=== PATIENT | male | born 1990 | race Caucasian/White ===

== ENCOUNTER → 2018-01-31 | Outpatient (CLI) | payer OTHER ==
--- NOTE | 2018-01-31 11:26 | XR ---
EXAMINATION TYPE: XR lumbar spine 2 or 3V DATE OF EXAM: 01/31/2018 COMPARISON: NONE HISTORY: 27-year-old male low back muscle strain, low back pain TECHNIQUE: 3 views FINDINGS: There is leftward truncal shift. Vertebral body heights are maintained and alignment is preserved. Th ere may be minimal early degenerative facet changes in the lower lumbar spine. IMPRESSION: 1. Leftward truncal shift could be positional or represent muscle spasm. 2. Minimal early facet degenerative changes lower lumbar spine. No vertebral compression collapse or malalignment.
== END | disposition home or self-care (01) ==
LOC: RADXRMAIN 10:58
PROVIDERS: ATTEND Emergency Medicine
DX: M47.816 Spondylosis without myelopathy or radiculopathy, lumbar region (principal)
CPT/HCPCS: 72100

== ENCOUNTER → 2018-03-14 | Outpatient (CLI) | payer OTHER ==
--- NOTE | 2018-03-14 21:14 | MR ---
EXAMINATION TYPE: MR lumbar spine wo con DATE OF EXAM: 03/14/2018 COMPARISON: Lumbar spine x-ray January 31, 2018 HISTORY: Low back pain into left leg after lifting injury. TECHNIQUE: Multiplanar, multisequence imaging of the lumbar spine is performed without IV contrast. FINDINGS: Sagittal images of the lumbar spine show vertebral body heights and alignment to appear sat isfactory. The intervertebral discs demonstrate normal heights and hydration. No large posterior dis c herniations are present on sagittal images. The conus medullaris is normal in position and signal e nding at T12-L1 disc space level. The bone marrow signal intensity is within normal limits. No signi ficant spurring is present. Axial images show some mild facet degenerative changes L4-L5 and L5-S1 levels. Spinal canal is preser juan carlos. Bilateral neural foramina remain patent. IMPRESSION: Mild facet arthropathy lower lumbar levels is confirmed. No significant finding is seen t o account for patient's left-sided radiculopathy type symptoms however.
== END | disposition home or self-care (01) ==
LOC: RADMRIMAIN 20:28
PROVIDERS: ATTEND Emergency Medicine
DX: M46.96 Unspecified inflammatory spondylopathy, lumbar region (principal)
CPT/HCPCS: 72148

== ENCOUNTER → 2018-10-22 | Outpatient (CLI) | payer BC ==
--- NOTE | 2018-10-22 11:06 | CT ---
EXAMINATION TYPE: CT abdomen pelvis w con DATE OF EXAM: 10/22/2018 COMPARISON: NONE HISTORY: 28-year-old male LLQ pain, Lt testicular pain TECHNIQUE: Contiguous axial scanning of the abdomen and pelvis following administration of 100 ml Iso therese 300 IV contrast. Delayed images through the kidneys and coronal/sagittal reconstructions perform ed. CT DLP: 441.1 mGycm Automated exposure control for dose reduction was used. FINDINGS: Heart normal size without pericardial effusion. Tiny hiatal hernia. Lung bases clear without pleural effusion. No focal liver lesion or biliary ductal dilatation. Portal venous system is patent. Gallbladder, adrenal glands, kidneys, spleen, and pancreas appear within normal limits. No dilated small bowel, free fluid, or free air. Segments of the normal opacified appendix are demonstrated, coronal image 21. No significant stool bu rden. Oral contrast extends to the rectum. Mild fold thickening of the sigmoid colon and rectum may b e secondary to nondistention. No pericolonic inflammatory fat stranding. Scattered numerous nonenlarged and borderline enlarged mesenteric lymph nodes are present measuring u p to 6 mm, for example, coronal image 24. Likely reactive/post inflammatory. Bladder is distended. Left-sided pelvic phleboliths. Prostate gland measures 3.7 cm wide. No abnormal fluid collection in the pelvis or pelvic lymphadenopathy. Bones: No osseous destructive process. IMPRESSION: 1. MILD CEREBRAL FRONTAL WALL THICKENING OF THE SIGMOID COLON AND RECTUM COULD BE SECONDARY TO NONDIS TENTION OR COULD REFLECT NONSPECIFIC MILD COLITIS. CLINICALLY CORRELATE. 2. A FEW BORDERLINE SIZED MESENTERIC LYMPH NODES MEASURE UP TO 6 MM AND ARE LIKELY REACTIVE/POST INFL AMMATORY. 3. OTHERWISE, NO ACUTE INFLAMMATORY PROCESS IDENTIFIED IN THE ABDOMEN OR PELVIS TO EXPLAIN THE PATIEN T'S SYMPTOMS.
== END ==
LOC: RADCTMAIN 07:49
PROVIDERS: ATTEND Internal Medicine
DX: K63.89 Other specified diseases of intestine (principal)
CPT/HCPCS: 74177; Q9967

== ENCOUNTER 2020-08-13 15:51 | Emergency (ER) | payer BC, OTHER ==
[2020-08-13] MEDS ORDERED: LIDOCAINE 5% PATCH TOPICAL STA (16:15)
[2020-08-13] MEDS ORDERED: oxyCODONE-APAP 7.5-325MG 1 EACH TAB PO STA (16:15)
[2020-08-13] MEDS ORDERED: dexAMETHasone 4 MG TAB PO STA (16:15)
--- NOTE | 2020-08-13 16:18 | ED ---
General Adult HPI - General Chief complaint: Back Pain/Injury Stated complaint: IHS-back injury Time Seen by Provider: 08/13/20 16:02 Source: patient Mode of arrival: ambulatory Limitations: no limitations - History of Present Illness Initial comments: Dictation was produced using [employer] dictation software. please excuse any grammatical, word or spelling errors. This patient was cared for during a federal and state declared state of emergency secondary to Covid 19 Chief Complaint: 30-year-old male presents with back pain History of Present Illness: [id number] male he works with [employer]. Patient states he was lifting a wheelchair into a wheelchair van. States that caring a wheelchair approximately 12 hours prior to arrival he felt pain in his back. States the pain is in his left lower back raised on his leg. Patient has history of chronic back pain. He has had workup on multiple occasions regarding his back pain. He had a negative MRI in March 2018. Patient denies any numbness daily paresthesias to the leg. Denies any saddle anesthesia. No fever. The ROS documented in this emergency department record has been reviewed and confirmed by me. Those systems with pertinent positive or negative responses have been documented in the HPI. All other systems are other negative and/or noncontributory. PHYSICAL EXAM: General Impression: Alert and oriented x3, not in acute distress HEENT: Normocephalic atraumatic, extra-ocular movements intact, pupils equal and reactive to light bilaterally, mucous membranes moist. Cardiovascular: Heart regular rate and rhythm Chest: Able to complete full sentences, no retractions, no tachypnea Abdomen: abdomen soft, non-tender, non-distended, no organomegaly Musculoskeletal: Pulses present and equal in all extremities, no peripheral edema Motor: no focal deficits noted Neurological: CN II-XII grossly intact, no focal motor or sensory deficits noted Skin: Intact with no visualized rashes Psych: Normal affect and mood ED course: 30 Year old male with clinical presentation consistent with sciatica. He has atraumatic back pain. He has no red flag symptoms. Vital signs upon arrival are within acceptable limits. No imaging indicated at this time. Patient given by mouth analgesic, lidocaine patch and steroid. Patient reevaluated after short observation in the emergency department. He is feeling better. Patient told to go home and rest. Given outpatient referral to a project specialist. - Related Data Allergies Allergy/AdvReac Type Severity Reaction Status Date / Time No Known Allergies Allergy Verified 08/13/20 15:56 Review of Systems ROS Statement: Those systems with pertinent positive or pertinent negative responses have been documented in the HPI. ROS Other: All systems not noted in ROS Statement are negative. Past Medical History Past Medical History: No Reported History History of Any Multi-Drug Resistant Organisms: None Reported Additional Past Surgical History / Comment(s): eye surgery Past Psychological History: No Psychological Hx Reported Smoking Status: Never smoker Past Alcohol Use History: Occasional Past Drug Use History: None Reported General Exam Limitations: no limitations Course Vital Signs 08/13/20 15:52 Temperature 98.6 F Pulse Rate 87 Respiratory 18 Rate Blood Pressure 135/91 O2 Sat by Pulse 98 Oximetry Disposition Clinical Impression: Back pain Disposition: HOME SELF-CARE Condition: Fair Instructions (If sedation given, give patient instructions): Acute Low Back Pain (ED) Is patient prescribed a controlled substance at d/c from ED?: No Referrals: Jerrica Deras DO [Doctor of Osteopathic Medicine] - 1-2 days Time of Disposition: 17:06
[2020-08-13 17:18] VITALS: BP 148/74; PULSE 78; RESP 16; TEMP 98.2
== END 2020-08-13 17:16 | disposition home or self-care (01) ==
LOC: EC 15:51
DX: M54.5 Low back pain (principal); X50.0XXA Overexertion from strenuous movement or load, initial encounter; Y92.69 Other specified industrial and construction area as the place of occurrence of the external cause; Y99.0 Civilian activity done for income or pay
CPT/HCPCS: 99283; J8540

== ENCOUNTER 2020-09-08 17:25 | Emergency (ER) | payer BC, OTHER ==
[2020-09-08 17:33] VITALS: BP 139/96; PULSE 81; RESP 18; TEMP 98
--- NOTE | 2020-09-08 18:04 | ED ---
General Adult HPI - General Chief complaint: Extremity Injury, Lower Stated complaint: IHS-HIP STRAIN Time Seen by Provider: 09/08/20 17:48 Source: patient, RN notes reviewed Mode of arrival: ambulatory Limitations: no limitations - History of Present Illness Initial comments: Patient is a pleasant 30-year-old male presenting to the emergency Department with complaints of right leg pain. 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 Patient complains of discomfort of the right upper quadriceps region. Discomfort does increase with movement. No weakness. Patient did not have direct trauma to this region. No history of similar problems previously. Patient is ambulatory. - Related Data Allergies Allergy/AdvReac Type Severity Reaction Status Date / Time No Known Allergies Allergy Verified 09/08/20 17:31 Review of Systems ROS Statement: Those systems with pertinent positive or pertinent negative responses have been documented in the HPI. ROS Other: All systems not noted in ROS Statement are negative. Constitutional: Denies: fever Eyes: Denies: eye pain ENT: Denies: ear pain Respiratory: Denies: cough Cardiovascular: Denies: chest pain Endocrine: Denies: fatigue Gastrointestinal: Denies: abdominal pain Genitourinary: Denies: dysuria Musculoskeletal: Reports: as per HPI. Denies: back pain Skin: Denies: rash Neurological: Denies: weakness Past Medical History Past Medical History: No Reported History History of Any Multi-Drug Resistant Organisms: None Reported Additional Past Surgical History / Comment(s): eye surgery Past Psychological History: No Psychological Hx Reported Smoking Status: Never smoker Past Alcohol Use History: Daily Past Drug Use History: None Reported General Exam Limitations: no limitations General appearance: alert, in no apparent distress Head exam: Present: normocephalic Eye exam: Present: normal appearance Neck exam: Present: normal inspection Respiratory exam: Present: normal lung sounds bilaterally Cardiovascular Exam: Present: regular rate, normal rhythm Expanded Peripheral pulses: 2+: Posterior Tibialis (R), Dorsalis Pedis (R) GI/Abdominal exam: Present: soft. Absent: tenderness Extremities exam: Present: normal inspection, full ROM, tenderness (Minimal tenderness anterior right hip) Neurological exam: Absent: motor sensory deficit Expanded Sensory exam: Lower Extremity Light Touch: Normal Motor strength exam: RLE: 5 Psychiatric exam: Present: normal affect, normal mood Skin exam: Present: normal color Course Vital Signs 09/08/20 17:31 Temperature 98 F Pulse Rate 81 Respiratory 18 Rate Blood Pressure 139/96 O2 Sat by Pulse 97 Oximetry Medical Decision Making - Medical Decision Making Patient reevaluated and updated. Patient feels he can return to work. Patient does not want prescription medication. - Radiology Data Radiology results: image reviewed (X-ray pelvis and right femur reveal no acute abnormality) Disposition Clinical Impression: Hip strain Disposition: HOME SELF-CARE Condition: Stable Instructions (If sedation given, give patient instructions): Hip Sprain (ED) Additional Instructions: Please follow-up with [facility] in the next day or 2 for recheck. Ice to affected area. [id number] Motrin as needed. Return for increased pain, weakness, worsening or changing symptoms or other concerns. Is patient prescribed a controlled substance at d/c from ED?: No Referrals: Brayan Knowles MD [Primary Care Provider] - 1-2 days Time of Disposition: 19:07
--- NOTE | 2020-09-08 18:24 | XR ---
EXAMINATION TYPE: XR pelvis AP view DATE OF EXAM: 09/08/2020 COMPARISON: None HISTORY: Fall TECHNIQUE: AP pelvis FINDINGS: Femoral heads articulate with the acetabulum. No acute fractures are evident. Sacroiliac abdelrahman ints and symphysis pubis are normal. Normal colonic bowel gas is present. Calcifications are within t he left hemipelvis. IMPRESSION: 1. No acute abnormality pelvis
--- NOTE | 2020-09-08 18:25 | XR ---
EXAMINATION TYPE: XR femur RT DATE OF EXAM: 09/08/2020 COMPARISON: None HISTORY: Fall, pain TECHNIQUE: 2 view right femur FINDINGS: Femoral head articulates with the acetabulum. No acute fracture or dislocation is evident. Knee joint space appears preserved. Soft tissues are unremarkable. IMPRESSION: 1. Normal 2 view right femur
== END 2020-09-08 19:10 | disposition home or self-care (01) ==
LOC: EC 17:25
DX: S76.011A Strain of muscle, fascia and tendon of right hip, initial encounter (principal); X58.XXXA Exposure to other specified factors, initial encounter; Y92.69 Other specified industrial and construction area as the place of occurrence of the external cause; Y99.0 Civilian activity done for income or pay
CPT/HCPCS: 72170; 99283

== ENCOUNTER 2021-09-30 11:04 | Emergency (ER) | payer BC ==
[2021-09-30 11:34] VITALS: BP 138/88; PULSE 97; RESP 18; TEMP 98.5
[2021-09-30] MEDS ORDERED: SODIUM CHLORIDE 0.9% 1,000 ML IV STA (12:10)
[2021-09-30] MEDS ORDERED: diphenhydrAMINE 50 MG/ML 1 ML VIAL IVP STA (12:10)
[2021-09-30] MEDS ORDERED: ONDANSETRON 4 MG/2 ML VIAL IVP STA (12:10)
[2021-09-30] MEDS ORDERED: LIDOCAINE VISCOUS 2% 15 ML CUP MUCOUS MEM STA (12:34)
[2021-09-30] MEDS ORDERED: FAMOTIDINE 20 MG/2 ML VIAL IV STA (12:34)
--- NOTE | 2021-09-30 12:41 | ED ---
General Adult HPI - General Chief complaint: Nausea/Vomiting/Diarrhea Stated complaint: Vomiting blood/headache/sore throat Time Seen by Provider: 09/30/21 12:05 Source: patient, RN notes reviewed, old records reviewed Mode of arrival: ambulatory Limitations: no limitations - History of Present Illness Initial comments: I evaluated the patient when he was placed in a room. Patient is a 31-year-old male with past medical history that is unremarkable. Patient presents to emergency department over concern for approximately 12 hour history of nausea a nd vomiting. Patient states he saw dark brown or red color to his emesis as well. He has vomited 3-4 times. Last was this morning. States he did eat including dinner last night he drank anything that was red. He describes the episodes as somewhat violent episodes of emesis. His current complaint is only mild nausea as well as some epigastric abdominal discomfort. He states it does not radiate. He describes it as a sharp, achy sensation. Denies any chest pain, shortness of breath. Patient was vaccinated for COVID-19. Denies any diarrhea. Denies any headache, weakness, numbness. Denies any cough, fevers, chills. He has no other acute complaints at this time. He does occasionally use alcohol. Denies any drug use. His no other acute complaints at this time. - Related Data Home Medications Medication Instructions Recorded Confirmed Dextroamphetamine/Amphetamine 15 mg PO BID 09/30/21 09/30/21 [Adderall] Previous Rx's Medication Instructions Recorded Famotidine [Pepcid] 20 mg PO DAILY 14 Days #14 tablet 09/30/21 Mag Hydrox/Al Hydrox/Simeth 30 ml PO BID #600 ml 09/30/21 [Maalox] Ondansetron Odt [Zofran Odt] 4 mg PO Q8HR PRN 2 Days #6 tab 09/30/21 Allergies Allergy/AdvReac Type Severity Reaction Status Date / Time No Known Allergies Allergy Verified 09/30/21 12:40 Review of Systems ROS Statement: Those systems with pertinent positive or pertinent negative responses have been documented in the HPI. Review of Systems: CONST: Denies fever EYES: Denies blurry vision ENT: Denies nasal congestion C/V: Denies Chest pain RESP: Denies shortness of breath GI: Endorses abdominal pain. : Denies dysuria SKIN: Denies rash. MSK: Denies joint pain. NEURO: Denies headache ROS Other: All systems not noted in ROS Statement are negative. Past Medical History Past Medical History: No Reported History History of Any Multi-Drug Resistant Organisms: None Reported Additional Past Surgical History / Comment(s): eye surgery Past Psychological History: No Psychological Hx Reported Smoking Status: Never smoker, Vaper Past Alcohol Use History: Daily, Occasional Past Drug Use History: None Reported General Exam - General Exam Comments Initial Comments: General: Appears in no acute distress. HEAD: Normal with no signs of head trauma. EYES: PERRLA, EOMI, conjunctiva normal, no discharge. ENT: Hearing grossly intact, normal oropharynx. RESPIRATORY: Clear breath sounds bilaterally. No wheezes, rales, or rhonchi. C/V: Regular rate and rhythm. S1 and S2 auscultated, no edema, peripheral pulses 2+ and intact throughout ABD: Abdomen is soft, nondistended. Patient is mildly tender to palpation in the epigastric region. There is no guarding. No peritoneal signs. No rebound tenderness. No CVA tenderness to percussion. EXT: Normal range of motion, no obvious deformity SKIN: No rashes or lesions observed on exposed skin. NEURO: Alert and oriented 4. Limitations: no limitations Course Vital Signs 09/30/21 11:30 Temperature 98.5 F Pulse Rate 97 Respiratory 18 Rate Blood Pressure 138/88 O2 Sat by Pulse 99 Oximetry Medical Decision Making - Medical Decision Making Based on the patient's presentation and physical exam, patient appears to be e xamined possible episode of hematemesis at home. As his nausea as well as epigastric abdominal pain. He otherwise appears in no acute distress. Vital signs are normal limits stable. We will obtain abdominal laboratory studies as well as symptomatically treat the patient with IV fluid bolus, and acids, Zofran, viscous lidocaine. He was in agreement with this plan. He'll be subsequently reevaluated upon laboratory studies. Chest x-ray will also be obtained to evaluate for any signs of mediastinal free air, however embolus patient for esophageal rupture as he has been tolerating PO intake at this time. Has no history of GERD or peptic ulcer disease. Patient's laboratory studies were remarkable for a mild leukocytosis of 10.9 which is likely reactive. Laboratory studies are otherwise unremarkable. Hemoglobin is within normal limits. No signs of thrombocytopenia.. COVID-19 swab was negative. Chest x-ray shows no acute cardio pulmonary process. On reevaluation, patient is feeling improved. He is telling by mouth intake. I do believe it is safer to be discharged home with follow-up with his PCP. He was in agreement this plan. We did discuss a bland diet until he begins to feel improved. I will provide the patient with a prescription for Maalox, famotidine, ODT Zofran. I instructed the patient to follow up with their PCP in the next 3 days. I explained that the patient should return to the emergency department if they experience any worsening symptoms. Strict return precautions were discussed with the patient. The patient expressed understanding of these instructions. I answered all questions that the patient had. The patient was discharged home in fair condition with their prescriptions and follow up information. - Lab Data Result diagrams: 09/30/21 12:29 09/30/21 12:29 Lab Results 09/30/21 09/30/21 09/30/21 Range/Units 12:29 12:29 12:29 WBC 10.9 H (3.8-10.6) k/uL RBC 5.04 (4.30-5.90) m/uL Hgb 15.6 (13.0-17.5) gm/dL Hct 44.1 (39.0-53.0) % MCV 87.6 (80.0-100.0) fL MCH 31.0 (25.0-35.0) pg MCHC 35.4 (31.0-37.0) g/dL RDW 13.2 (11.5-15.5) % Plt Count 353 (150-450) k/uL MPV 7.9 Neutrophils % 76 % Lymphocytes % 13 % Monocytes % 7 % Eosinophils % 3 % Basophils % 1 % Neutrophils # 8.3 H (1.3-7.7) k/uL Lymphocytes # 1.4 (1.0-4.8) k/uL Monocytes # 0.7 (0-1.0) k/uL Eosinophils # 0.3 (0-0.7) k/uL Basophils # 0.1 (0-0.2) k/uL Sodium 138 (137-145) mmol/L Potassium 4.4 (3.5-5.1) mmol/L Chloride 105 (98-107) mmol/L Carbon Dioxide 25 (22-30) mmol/L Anion Gap 8 mmol/L BUN 15 (9-20) mg/dL Creatinine 1.01 (0.66-1.25) mg/dL Est GFR (CKD-EPI)AfAm >90 (>60 ml/min/1.73 sqM) Est GFR (CKD-EPI)NonAf >90 (>60 ml/min/1.73 sqM) Glucose 98 (74-99) mg/dL Calcium 10.1 (8.4-10.2) mg/dL Magnesium 1.8 (1.6-2.3) mg/dL Total Bilirubin 0.8 (0.2-1.3) mg/dL AST 28 (17-59) U/L ALT 23 (4-49) U/L Alkaline Phosphatase 55 (38-126) U/L Total Protein 7.3 (6.3-8.2) g/dL Albumin 4.4 (3.5-5.0) g/dL Amylase 52 (30-110) U/L Lipase 113 (23-300) U/L Coronavirus (PCR) Not Detected (Not Detectd) Disposition Clinical Impression: Nausea & vomiting, Abdominal pain of unknown etiology, Gastritis Disposition: HOME SELF-CARE Condition: Fair Instructions (If sedation given, give patient instructions): Acute Nausea and Vomiting (ED) Prescriptions: Mag Hydrox/Al Hydrox/Simeth [Maalox] 30 ml PO BID #600 ml Famotidine [Pepcid] 20 mg PO DAILY 14 Days #14 tablet Ondansetron Odt [Zofran Odt] 4 mg PO Q8HR PRN 2 Days #6 tab PRN Reason: Nausea Is patient prescribed a controlled substance at d/c from ED?: No Referrals: Indiana Hollis MD [Primary Care Provider] - 1-2 days
[2021-09-30 12:51] LABS: Basophils # (A) 0.1 k/uL (0-0.2); Basophils % (A) 1 %; Eosinophils # (A) 0.3 k/uL (0-0.7); Eosinophils % (A) 3 %; HCT 44.1 % (39.0-53.0); HGB 15.6 gm/dL (13.0-17.5); Lymphocytes # (A) 1.4 k/uL (1.0-4.8); Lymphocytes % (A) 13 %; MCHC 35.4 g/dL (31.0-37.0); MCV 87.6 fL (80.0-100.0); Mean Platelet Volume 7.9; Monocytes # (A) 0.7 k/uL (0-1.0); Monocytes % (A) 7 %; Neutrophils # (A) 8.3 k/uL (1.3-7.7); Neutrophils % (A) 76 %; Platelet Count 353 k/uL (150-450); RBC 5.04 m/uL (4.30-5.90); RDW 13.2 % (11.5-15.5); WBC 10.9 k/uL (3.8-10.6)
[2021-09-30 13:02] LABS: ALT 23 U/L (4-49); AST 28 U/L (17-59); African American GFR (CKD) >90 (>60 ml/min/1.73 sqM); Albumin 4.4 g/dL (3.5-5.0); Alkaline Phosphatase 55 U/L (38-126); Amylase 52 U/L (30-110); Anion Gap 8 mmol/L; Blood Urea Nitrogen 15 mg/dL (9-20); Calcium 10.1 mg/dL (8.4-10.2); Carbon Dioxide 25 mmol/L (22-30); Chloride 105 mmol/L (98-107); Glucose 98 mg/dL (74-99); Lipase 113 U/L (23-300); Magnesium 1.8 mg/dL (1.6-2.3); Non-African American GFR(CKD) >90 (>60 ml/min/1.73 sqM); Potassium 4.4 mmol/L (3.5-5.1); Sodium 138 mmol/L (137-145); Total Bilirubin 0.8 mg/dL (0.2-1.3); Total Protein 7.3 g/dL (6.3-8.2)
--- NOTE | 2021-09-30 13:13 | XR ---
EXAMINATION TYPE: XR chest 2V DATE OF EXAM: 09/30/2021 COMPARISON: 07/24/2019 HISTORY: 31-year-old male with pain TECHNIQUE: PA and lateral views FINDINGS: The cardiomediastinal silhouette, aorta, and pulmonary vasculature are within normal limits. Lungs an d pleural spaces are clear. IMPRESSION: No acute cardiopulmonary process.
== END 2021-09-30 15:04 | disposition home or self-care (01) ==
LOC: EC 11:04
DX: K29.70 Gastritis, unspecified, without bleeding (principal); F17.290 Nicotine dependence, other tobacco product, uncomplicated
CPT/HCPCS: 36415; 80053; 82150; 83690; 83735; 85025; 87635; 71046; 99284; 96374; 96375 ×2; 96361; J1200; J2405

== ENCOUNTER 2022-09-28 03:27 | Emergency (ER) | payer BC, OTHER ==
--- NOTE | 2022-09-28 03:29 | ED ---
Chest Pain HPI - General Stated Complaint: Chest pain Time Seen by Provider: 09/28/22 03:28 Source: RN notes reviewed, old records reviewed Mode of arrival: EMS Limitations: no limitations - History of Present Illness Initial Comments: This is a 32-year-old male DF for evaluation. 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 Chest pain continued here in route to the ER and because of significant shortness of breath prior to arrival. No prior history of similar issue. No travel or sick contacts, no fevers or other complaints MD Complaint: chest pain -: minutes(s) Onset: during exertion Pain Location: left chest Pain Radiation: none Severity: moderate Severity scale (1-10): 7 Quality: tightness, sharp Consistency: intermittent Improves With: nothing Worsens With: exertion Anginal Symptoms: dyspnea Other Symptoms: palpitations Treatments Prior to Arrival: none - Related Data Home Medications Medication Instructions Recorded Confirmed Dextroamphetamine/Amphetamine 15 mg PO BID 09/30/21 09/30/21 [Adderall] Previous Rx's Medication Instructions Recorded Famotidine [Pepcid] 20 mg PO DAILY 14 Days #14 tablet 09/30/21 Mag Hydrox/Al Hydrox/Simeth 30 ml PO BID #600 ml 09/30/21 [Maalox] Ondansetron Odt [Zofran Odt] 4 mg PO Q8HR PRN 2 Days #6 tab 09/30/21 Allergies Allergy/AdvReac Type Severity Reaction Status Date / Time No Known Allergies Allergy Verified 09/30/21 12:40 Review of Systems ROS Statement: Those systems with pertinent positive or pertinent negative responses have been documented in the HPI. ROS Other: All systems not noted in ROS Statement are negative. EKG Findings - EKG Comments: EKG Findings:: EKG interpreted by me as sinus 88 [address] 187 QRS 82 QTC 368 Past Medical History Past Medical History: No Reported History History of Any Multi-Drug Resistant Organisms: None Reported Additional Past Surgical History / Comment(s): eye surgery Past Psychological History: No Psychological Hx Reported Smoking Status: Never smoker, Vaper Past Alcohol Use History: Daily, Occasional Past Drug Use History: None Reported General Exam General appearance: alert, in no apparent distress, anxious Head exam: Present: atraumatic, normocephalic, normal inspection Eye exam: Present: normal appearance, PERRL, EOMI. Absent: scleral icterus, conjunctival injection, periorbital swelling ENT exam: Present: normal exam, mucous membranes moist Neck exam: Present: normal inspection. Absent: tenderness, meningismus, lymphadenopathy Respiratory exam: Present: normal lung sounds bilaterally. Absent: respiratory distress, wheezes, rales, rhonchi, stridor Cardiovascular Exam: Present: regular rate, normal rhythm, normal heart sounds. Absent: systolic murmur, diastolic murmur, rubs, gallop, clicks GI/Abdominal exam: Present: soft, normal bowel sounds. Absent: distended, tenderness, guarding, rebound, rigid Extremities exam: Present: normal inspection, full ROM, normal capillary refill. Absent: tenderness, pedal edema, joint swelling, calf tenderness Back exam: Present: normal inspection Neurological exam: Present: alert, oriented X3, CN II-XII intact Psychiatric exam: Present: normal affect, normal mood Skin exam: Present: warm, dry, intact, normal color. Absent: rash Course Vital Signs 09/28/22 09/28/22 09/28/22 03:28 03:36 03:40 Temperature 98.3 F Pulse Rate 91 Pulse Rate [ 84 Apical] Respiratory 16 Rate Blood Pressure 124/75 O2 Sat by Pulse 99 Oximetry 09/28/22 08:54 Temperature 98.2 F Pulse Rate 78 Pulse Rate [ Apical] Respiratory 16 Rate Blood Pressure 124/89 O2 Sat by Pulse 98 Oximetry - Reevaluation(s) Reevaluation #1: 09/28/22 Medical record is reviewed Patient improved here in the ER Patient informed results and questions answered Reevaluation #2: Studies CT chest is negative for acute disease no PE Chest Pain MDM - MDM 32 male the ER for evaluation of chest pain with PVCs. Patient is not having any runs of PVCs relatively asymptomatic occasional chest pain. No acute cause found here in the ER no risk factors for heart disease a patient can be discharged home Disposition Clinical Impression: Chest pain, PVC (premature ventricular contraction) Disposition: HOME SELF-CARE Condition: Good Instructions (If sedation given, give patient instructions): Chest Pain (ED), Premature Ventricular Contractions (ED) Is patient prescribed a controlled substance at d/c from ED?: No Referrals: Indiana Hollis MD [Primary Care Provider] - 1-2 days Time of Disposition: 05:10
[2022-09-28 03:36] VITALS: RESP 16
[2022-09-28] MEDS ORDERED: KETOROLAC 15 MG/ML 1 ML VIAL IVP STA (03:56)
[2022-09-28 04:01] LABS: Basophils # (A) 0.1 k/uL (0-0.2); Basophils % (A) 1 %; Eosinophils # (A) 0.3 k/uL (0-0.7); Eosinophils % (A) 2 %; HCT 44.9 % (39.0-53.0); HGB 15.4 gm/dL (13.0-17.5); Lymphocytes # (A) 2.5 k/uL (1.0-4.8); Lymphocytes % (A) 25 %; MCH 30.7 pg (25.0-35.0); MCHC 34.4 g/dL (31.0-37.0); MCV 89.1 fL (80.0-100.0); Mean Platelet Volume 9.2; Monocytes # (A) 0.6 k/uL (0-1.0); Monocytes % (A) 6 %; Neutrophils # (A) 6.7 k/uL (1.3-7.7); Neutrophils % (A) 65 %; Platelet Count 256 k/uL (150-450); RBC 5.03 m/uL (4.30-5.90); RDW 12.9 % (11.5-15.5); WBC 10.3 k/uL (3.8-10.6)
[2022-09-28 04:12] LABS: ALT 30 U/L (4-49); AST 34 U/L (17-59); African American GFR (CKD) >90 (>60 ml/min/1.73 sqM); Albumin 4.6 g/dL (3.5-5.0); Alkaline Phosphatase 49 U/L (38-126); Anion Gap 12 mmol/L; Blood Urea Nitrogen 18 mg/dL (9-20); Calcium 9.6 mg/dL (8.4-10.2); Carbon Dioxide 20 mmol/L (22-30); Chloride 107 mmol/L (98-107); Glucose 146 mg/dL (74-99); Magnesium 1.7 mg/dL (1.6-2.3); Non-African American GFR(CKD) 81 (>60 ml/min/1.73 sqM); Sodium 139 mmol/L (137-145); Total Bilirubin 1.1 mg/dL (0.2-1.3)
[2022-09-28] MEDS ORDERED: SODIUM CHLORIDE 0.9% 1,000 ML IV STA (05:03)
[2022-09-28] MEDS ORDERED: ACETAMINOPHEN IV (For NPO) 1,000 MG in EMPTY BAG 1 BAG IVPB STA (05:03)
[2022-09-28 06:01] LABS: Creatine Kinase 86 U/L (55-170); Lipase 102 U/L (23-300)
--- NOTE | 2022-09-28 07:17 | CT ---
EXAMINATION TYPE: CT angio chest DATE OF EXAM: 09/28/2022 6:59 AM COMPARISON: None HISTORY: Chest pain. Denies cardiac hx CT DLP: 323.6 mGycm Automated exposure control for dose reduction was used. CONTRAST: CTA scan of the thorax is performed with IV Contrast, patient injected with 100 mL of Isovue 370, pul monary embolism protocol. 3-D postprocessing was performed.. FINDINGS: LUNGS: The lungs are grossly clear, there is no concerning parenchymal mass or nodule identified. T here is no pleural effusion or pneumothorax seen. The tracheobronchial tree is patent. MEDIASTINUM: There is satisfactory enhancement of the pulmonary artery and its branches, there is no CT evidence for pulmonary embolism. There are no greater than 1 cm hilar or mediastinal lymph nodes. No pericardial effusion is seen. OTHER: No additional significant abnormality is seen. IMPRESSION: NO EVIDENCE OF PULMONARY EMBOLISM. NO SIGNIFICANT ABNORMALITY SEEN.
[2022-09-28 08:55] VITALS: BP 124/89; PULSE 78; TEMP 98.2
== END 2022-09-28 08:54 | disposition home or self-care (01) ==
LOC: EC 03:27
DX: I49.3 Ventricular premature depolarization (principal); F17.290 Nicotine dependence, other tobacco product, uncomplicated
CPT/HCPCS: 99285; 96365; 96375; 36415; 93005; 85379; 83880; 80053; 82550; 82553; 83690; 83735; 84100; 84443; 84484; 85025; 71275; J0131; J1885; Q9967

== ENCOUNTER 2025-01-20 14:10 | Emergency (ER) | payer OTHER, BC ==
[2025-01-20 14:34] VITALS: RESP 18
--- NOTE | 2025-01-20 15:19 | ED ---
General Adult HPI - General Chief complaint: Extremity Injury, Lower Stated complaint: [facility]-L leg injury Time Seen by Provider: 01/20/25 14:41 Source: patient, RN notes reviewed Mode of arrival: ambulatory Limitations: no limitations - History of Present Illness Initial comments: 34-year-old male presents to the emergency department for evaluation of left leg injury. Patient states that while he was in the back of the ambulance at work he mehran his leg when the ambulance stopped quickly. He states that his leg was leaning against the stretcher and his body weight quickly moved. He states pain in the mid tib-fib. He is able to ambulate. He denies any other injury. He did not fall or hit his head. Denies blood thinners. - Related Data Home Medications Medication Instructions Recorded Confirmed Dextroamphetamine/Amphetamine 15 mg PO BID 09/30/21 09/30/21 [Adderall] Previous Rx's Medication Instructions Recorded Famotidine [Pepcid] 20 mg PO DAILY 14 Days #14 tablet 09/30/21 Mag Hydrox/Al Hydrox/Simeth 30 ml PO BID #600 ml 09/30/21 [Maalox] Ondansetron Odt [Zofran Odt] 4 mg PO Q8HR PRN 2 Days #6 tab 09/30/21 Allergies Allergy/AdvReac Type Severity Reaction Status Date / Time No Known Allergies Allergy Verified 01/20/25 14:35 Review of Systems ROS Statement: Those systems with pertinent positive or pertinent negative responses have been documented in the HPI. ROS Other: All systems not noted in ROS Statement are negative. Past Medical History Past Medical History: No Reported History History of Any Multi-Drug Resistant Organisms: None Reported Additional Past Surgical History / Comment(s): eye surgery Past Psychological History: No Psychological Hx Reported Smoking Status: Never smoker, Vaper Past Alcohol Use History: Daily, Occasional Past Drug Use History: None Reported General Exam Limitations: no limitations General appearance: alert, in no apparent distress Head exam: Present: atraumatic, normocephalic, normal inspection Eye exam: Present: normal appearance, PERRL, EOMI. Absent: scleral icterus, conjunctival injection, periorbital swelling ENT exam: Present: normal exam, mucous membranes moist Neck exam: Present: normal inspection. Absent: tenderness, meningismus, lymphadenopathy Respiratory exam: Present: normal lung sounds bilaterally. Absent: respiratory distress, wheezes, rales, rhonchi, stridor Cardiovascular Exam: Present: regular rate, normal rhythm, normal heart sounds. Absent: systolic murmur, diastolic murmur, rubs, gallop, clicks Extremities exam: Present: full ROM, tenderness (Mid tib-fib), normal capillary refill, other (DP PT pulses 2+). Absent: pedal edema, joint swelling, calf tenderness Neurological exam: Present: alert, oriented X3 Psychiatric exam: Present: normal affect, normal mood Skin exam: Present: warm, dry, intact, normal color. Absent: rash Course Vital Signs 01/20/25 01/20/25 14:31 16:53 Temperature 98.9 F 98.7 F Pulse Rate 104 H 96 Respiratory 18 18 Rate Blood Pressure 157/96 140/86 O2 Sat by Pulse 95 96 Oximetry Medical Decision Making - Medical Decision Making Was pt. sent in by a medical professional or institution (, PA, BRANCH OPERATIONS MANAGER, urgent care, hospital, or half-way...) When possible be specific @ -No Did you speak to anyone other than the patient for history (EMS, parent, family, police, friend...)? What history was obtained from this source @ -No Did you review nursing and triage notes (agree or disagree)? Why? @ -I reviewed and agree with nursing and triage notes Were old charts reviewed (outside hosp., previous admission, EMS record, old EKG, old radiological studies, urgent care reports/EKG's, half-way records)? Report findings @ -No old charts were reviewed Differential Diagnosis (chest pain, altered mental status, abdominal pain women, abdominal pain men, vaginal bleeding, weakness, fever, dyspnea, syncope, headache, dizziness, GI bleed, back pain, seizure, CVA, palpatations, mental health, musculoskeletal)? @ -Differential Musculoskeletal Muscular strain, contusion, ligament sprain, fracture, arthritis, septic arthritis, bursitis, cellulitis, muscle spasm, nerve compression, DVT, arterial occlusion, herpes zoster, electrolyte abnormality, tumor.... This is not meant to be in all inclusive list EKG interpreted by me (3pts min.). @ -None X-rays interpreted by me (1pt min.). @ -X-rays of the tib-fib show no evidence of acute fracture or dislocation CT interpreted by me (1pt min.). @ -None done U/S interpreted by me (1pt. min.). @ -None done What testing was considered but not performed or refused? (CT, X-rays, U/S, labs)? Why? @ -None What meds were considered but not given or refused? Why? @ -None Did you discuss the management of the patient with other professionals (professionals i.e. Dr., PA, BRANCH OPERATIONS MANAGER, lab, RT, psych nurse, sexual assault social worker, leadership recruiter, teacher, lodge officer, counseling case manager)? Give summary @ -No Was smoking cessation discussed for >3mins.? @ -No Was critical care preformed (if so, how long)? @ -No Were there social determinants of health that impacted care today? How? (Homelessness, low income, unemployed, alcoholism, drug addiction, transportation, low edu. Level, literacy, decrease access to med. care, assisted, rehab)? @ -No Was there de-escalation of care discussed even if they declined (Discuss DNR or withdrawal of care, Hospice)? DNR status @ -No What co-morbidities impacted this encounter? (DM, HTN, Smoking, COPD, CAD, Cancer, CVA, ARF, Chemo, Hep., AIDS, mental health diagnosis, sleep apnea, morbid obesity)? @ -None Was patient admitted / discharged? Hospital course, mention meds given and route, prescriptions, significant lab abnormalities, going to OR and other pertinent info. @ -Discharge. Patient presented emergency department for evaluation of left leg injury. X-rays of the tib-fib obtained revealing no evidence of acute fracture or dislocation. Advised symptomatic treatment at this time. Patient is able to ambulate. He is understanding agreeable with plan. Patient stable at time of discharge. Case discussed with Dr. Mijares Undiagnosed new problem with uncertain prognosis? @ -No Drug Therapy requiring intensive monitoring for toxicity (Heparin, Nitro, Insulin, Cardizem)? @ -No Were any procedures done? @ -No Diagnosis/symptom? @ -leg contusion Acute, or Chronic, or Acute on Chronic? @ -Acute Uncomplicated (without systemic symptoms) or Complicated (systemic symptoms)? @ -uncomplicated Side effects of treatment? @ -No Exacerbation, Progression, or Severe Exacerbation? @ -No Poses a threat to life or bodily function? How? (Chest pain, [place], [place], pneumonia, PE, COPD, DKA, ARF, appy, cholecystitis, CVA, Diverticulitis, Homicidal, Suicidal, threat to staff... and all critical care pts) @ -No Disposition Clinical Impression: Contusion of leg Disposition: HOME SELF-CARE Condition: Stable Instructions (If sedation given, give patient instructions): P.R.I.C.E. Treatment (ED) Additional Instructions: Please follow up with your primary care provider. Return to the emergency department for new or worsening symptoms. Is patient prescribed a controlled substance at d/c from ED?: No Referrals: Vincent Melendez MD [Primary Care Provider] - 1-2 days
--- NOTE | 2025-01-20 16:35 | XR ---
EXAMINATION TYPE: XR tibia fibula LT DATE OF EXAM: 01/20/2025 4:17 PM COMPARISON: None. CLINICAL INDICATION: Male, 34 years old with history of pain, pain TECHNIQUE: XR tibia fibula LT views were obtained FINDINGS: There is no acute fracture/dislocation evident. The joint spaces appear within normal limits. The o verlying soft tissue appears unremarkable. IMPRESSION: No acute fracture or dislocation seen. [facility], , 01/20/2025 4:33 PM
[2025-01-20 16:54] VITALS: BP 140/86; PULSE 96; TEMP 98.7
== END 2025-01-20 16:54 | disposition home or self-care (01) ==
LOC: EC 14:10
DX: S80.12XA Contusion of left lower leg, initial encounter (principal); F17.290 Nicotine dependence, other tobacco product, uncomplicated; W22.8XXA Striking against or struck by other objects, initial encounter; Y92.538 Other ambulatory health services establishments as the place of occurrence of the external cause; Y99.0 Civilian activity done for income or pay
CPT/HCPCS: 99283